=== PATIENT | female | born 1955 ===

== ENCOUNTER → 2019-03-06 | Day surgery (SDC) | payer OTHER ==
[~2019-03-06] MED LIST: VYTORIN 10/10 T1 TAB PO
== END | disposition home or self-care (01) ==
LOC: ADM 03-03 13:30 → AMB-ENDOS 06:30
DX: K62.89 Other specified diseases of anus and rectum (principal)

== ENCOUNTER 2022-08-16 13:09 | Outpatient (CLI) | payer OTHER | END 2022-08-16 13:11 | disposition home or self-care (01) | LOC: RAD 13:09 | DX: N20.0 Calculus of kidney (principal); N23 Unspecified renal colic; R31.29 Other microscopic hematuria; R39.12 Poor urinary stream ==

== ENCOUNTER 2022-11-06 08:53 | Outpatient (CLI) | payer OTHER | END 2022-11-06 08:57 | disposition home or self-care (01) | LOC: SONOGRAMA 08:53 | PROVIDERS: ATTEND Family Medicine | DX: R19.7 Diarrhea, unspecified (principal) ==